=== PATIENT | female | born 1995 | race Caucasian/White ===

== ENCOUNTER 2018-03-12 15:34 | Emergency (ER) | payer OTHER ==
[2018-03-12 15:39] VITALS: BP 124/86
--- NOTE | 2018-03-12 15:46 | EDPHY ---
H & P Stated Complaint: right pointer finger lac. Time Seen by Provider: 03/12/18 15:45 HPI/ROS: HPI: This is a 22-year-old female who presents with Chief Complaint: right pointer finger lac. Location: Right pointer and middle finger Quality: Laceration Duration: Prior to arrival Signs and Symptoms: No bleeding, no radiation, no numbness, no weakness, no tingling, no incontinence, no decreased range of motion, no swelling, + pain, no fever Timing: Acute Severity: Mild Context: Patient is right-hand dominant, presents with accidentally cutting her right pointer finger and right middle finger on a kitchen knife prior to arrival. She reports that she has severe, constant, nonradiating pain that is worsened with any movement or touching of the area. Reports tetanus current. Denies paresthesias/weakness/decreased range of motion. Modifying Factors: Applied direct pressure with stopping of the bleeding Comment: ROS: see HPI Constitutional: No fever, no chills, no weight loss Eyes: No blurred vision Respiratory: No shortness of breath, no cough Cardiovascular: No chest pain Gastrointestinal: No nausea, no vomiting no diarrhea Genitourinary: No dysuria Extremities: No myalgias Neurologic: No weakness, no numbness Skin: No rashes Hematologic: No bruising, no bleeding MEDICAL/SURGICAL/SOCIAL HISTORY: Medical history: Generally healthy. Does not take any regular medications. Surgical history: Denies Social history: Student. Former smoker. CONSTITUTIONAL: awake and alert, no obvious distress HEENT: Atraumatic and normocephalic. NECK: supple, no midline tenderness, flexion 45 degrees, extension 45 degrees, right and left lateral flexion 45 degrees. No meningismus. Cardiovascular: Normal S1/S2, regular rate, regular rhythm, without murmur rub or gallop. PULMONARY/CHEST: Symmetrical and nontender. no crepitus. Clear to auscultation bilaterally. Good air movement. No accessory muscle usage. ABDOMEN: Soft, nondistended, nontender, no ecchymosis. PELVIC: no pain with rocking; bilateral hips flexion 125 degrees, extension 30 degrees, with no pain internal rotation and no pain external rotation. BACK: No midline tenderness, no paraspinous spasm, deep tendon reflexes 2/2, no pain with straight leg raise, No foot drop. Achilles reflexes are equal bilaterally. Able to walk on heels and toes without difficulty. EXTREMITIES: 2/2 pulses, strength 5/5, right 2nd digit .25 cm superficial linear laceration at the DIP joint on the palmar aspect; .25 cm superficial linear laceration between the DIP and PIP joint on the right middle finger palmar aspect. DIP/PIP/MCP flexion/extension intact with good light touch sensation. No nail involvement. no deformities, no clubbing, no cyanosis or edema. NEUROLOGICAL: no focal neuro deficits. GCS 15. Light touch sensation intact. SKIN: Warm and dry, no erythema. no rash. Good capillary refill. Source: Patient Exam Limitations: No limitations - Personal History LMP (Females 10-55): 15-21 Days Ago Current Tetanus Diphtheria and Acellular Pertussis (TDAP): Yes - Medical/Surgical History Hx Asthma: No Hx Chronic Respiratory Disease: No Hx Diabetes: No Hx Cardiac Disease: No Hx Renal Disease: No Hx Cirrhosis: No Hx Alcoholism: No Hx HIV/AIDS: No Hx Splenectomy or Spleen Trauma: No Other PMH: Denies - Social History Smoking Status: Current some day smoker Constitutional: Initial Vital Signs Temperature (C) 36.7 C 03/12/18 15:35 Heart Rate 66 03/12/18 15:35 Respiratory Rate 16 03/12/18 15:35 Blood Pressure 124/86 H 03/12/18 15:35 O2 Sat (%) 98 03/12/18 15:35 O2 Delivery Mode Room Air Allergies/Adverse Reactions: gluten Allergy (Verified 03/12/18 15:39) Home Medications: Medication Instructions Recorded Testosterone IM 03/12/18 Medical Decision Making Procedures: Procedure: Laceration repair. Verbal consent was obtained from the patient. The 0.25 cm, superficial, simple , linear laceration on the right pointer finger was anesthetized in the usual fashion using let topical. The wound was irrigated, draped and explored to its base with a gloved finger. There were no deep structures involved. No tendon injury was identified. The wound was repaired with Dermabond. The procedure was performed by myself. Procedure: Laceration repair. Verbal consent was obtained from the patient. The 0.25 cm, superficial, simple , linear laceration on the 3rd middle finger was anesthetized in the usual fashion using let topical. The wound was irrigated, draped and explored to its base with a gloved finger. There were no deep structures involved. No tendon injury was identified. The wound was repaired with Dermabond. The procedure was performed by myself. Procedure: Splint placement. A right 2nd digit finger splint was applied by the Emergency Room hematology technician. After application of the splint I returned and re-examined the patient. The splint was adequately immobilizing the joint and distal to the splint the patient's circulation and sensation was intact. ED Course/Re-evaluation: Cleaned with soap and water; let topical applied Superficial lacerations closed with Dermabond. Due to the laceration being on the DIP joint of 2nd digit, placed in finger splint to decrease immobilization No signs of neurovascular compromise/tenting of skin/compartment syndrome/ extremities and joints examined above and below area of concern and are neurovascularly intact. Verbal and written wound care instructions provided to patient This patient was seen under the supervision of my secondary supervising physician. I evaluated care for this patient independently. Differential Diagnosis: Differential diagnosis includes but is not limited to nerve injury, tendon injury, foreign Body, nail injury. - Data Points Medications Given: Discontinued Medications Tetracaine/Epinephrine/Lidocaine (Let Gel Topical) 1 ea TP EDNOW ONE Stop: 03/12/18 15:58 Last Admin: 03/12/18 16:30 Dose: 1 ea Departure - Departure Disposition: Home, Routine, Self-Care Clinical Impression: Laceration of multiple sites of hand and fingers without complication Qualifiers: Encounter type: initial encounter Laterality: right Qualified Code(s): S61.411A - Laceration without foreign body of right hand, initial encounter; S61.219A - Laceration without foreign body of unspecified finger without damage to nail, initial encounter; S61.219A - Laceration without foreign body of unspecified finger without damage to nail, initial encounter Condition: Good Instructions: Finger Laceration (ED), Skin Adhesive Care (ED) Additional Instructions: Keep the splint dry and in place for 7 days. After 7 days, you may remove the splint. After removing the splint; wash the site daily with mild soap and water; then pat dry. Allow the skin glue to slowly dissolve on its own. Take Tylenol 650 mg every 4 hours and/or Ibuprofen 600 mg every 8 hours with food as needed for pain. Return to the ER immediately if you experience new or worsening pain, discoloration, numbness, tingling, or any other symptoms that concern you. Referrals: [facility],. [Clinic] - As per Instructions
[2018-03-12] MEDS ORDERED: LET GEL TOPICAL 1 EA SYR TP ONE (15:57)
[2018-03-12] MEDS ORDERED: SKIN ADHESIVE (DERMABOND) 1 EACH TP ONE (16:51)
== END 2018-03-12 17:17 | disposition home or self-care (01) ==
PROC: 0HQFXZZ Repair Right Hand Skin, External Approach (ICD-10-PCS; principal; 2018-03-12)
DX: S61.210A Laceration without foreign body of right index finger without damage to nail, initial encounter (principal); S61.212A Laceration without foreign body of right middle finger without damage to nail, initial encounter; F17.200 Nicotine dependence, unspecified, uncomplicated; W26.0XXA Contact with knife, initial encounter

== ENCOUNTER 2018-11-24 00:22 | Emergency (ER) | payer OTHER ==
[2018-11-24 00:30] VITALS: BP 128/92
--- NOTE | 2018-11-24 00:56 | EDPHY ---
H & P Stated Complaint: ?IMPEND SZ,TENSE BACK OF NECK, TWITCHY, THINKS RXN TO INCREASED WELLBUTRIN Time Seen by Provider: 11/24/18 00:32 HPI/ROS: Chief Complaint: Neck spasms, facial numbness HPI: 23-year-old woman with a history of depression is presenting with the onset of increasing spasms in her neck and numbness in her face, particularly around her mouth. She says symptoms began after she took a 2nd dose of Wellbutrin today. Her primary care physician started her on Wellbutrin 4 days ago. She has been taking 70 my mg every morning. Today she took a 2nd doses part of the increasing taper. Shortly after taking the Wellbutrin, which she took with her Zoloft, she began having symptoms. No headache. No focal numbness or weakness. She has not taken any other medications. No fevers or chills. No nausea or vomiting. No lightheadedness or fainting. ROS: 10 systems were reviewed and were negative except those elements noted in the HPI. PMH: Depression Social History: No smoking, no alcohol, no recreational drug use Family History: non-contributory Physical Exam: Gen: Awake, Alert, No Distress HEENT: Nose: no rhinorrhea Eyes: PERRLA, EOMI Mouth: Moist mucosa Neck: Supple, no JVD Chest: nontender, lungs clear to auscultation Heart: S1, S2 normal, no murmur Abd: Soft, non-tender, no guarding Back: no CVA tenderness, no midline tenderness Ext: no edema, non-tender Skin: no rash Neuro: CN II-XII intact, Sensation grossly intact, Strength 5/5 in bilateral upper and lower extremities, normal finger-nose, normal heel-colindres, negative Romberg - Personal History LMP (Females 10-55): 8-14 Days Ago Current Tetanus/Diphtheria Vaccine: Yes - Medical/Surgical History Hx Asthma: No Hx Chronic Respiratory Disease: No Hx Diabetes: No Hx Cardiac Disease: No Hx Renal Disease: No Hx Cirrhosis: No Hx Alcoholism: No Hx HIV/AIDS: No Hx Splenectomy or Spleen Trauma: No Other PMH: Denies - Social History Smoking Status: Current some day smoker Constitutional: Initial Vital Signs Temperature (C) 36.7 C 11/24/18 00:25 Heart Rate 86 11/24/18 00:25 Respiratory Rate 24 H 11/24/18 00:25 Blood Pressure 128/92 H 11/24/18 00:25 O2 Sat (%) 99 11/24/18 00:25 O2 Delivery Mode Room Air Allergies/Adverse Reactions: gluten Allergy (Verified 11/24/18 00:25) Home Medications: Medication Instructions Recorded Wellbutrin Sr 11/24/18 Zoloft 100mg (*) 11/24/18 Medical Decision Making ED Course/Re-evaluation: 23-year-old woman presenting with neck spasms, perioral paresthesias after taking Wellbutrin. She has a completely normal neurologic exam at this time. No evidence of any seizure activity. She has been reassured. She does not wish to continue taking Wellbutrin. I told her it is okay for her to discontinue but she should continue taking her Zoloft. Follow up with primary care physician early next week. Departure - Departure Disposition: Home, Routine, Self-Care Clinical Impression: Medication reaction Condition: Good Instructions: Normal Exam (ED) Additional Instructions: Follow up with primary care physician in 3-4 days for further evaluation. You may discontinue the Wellbutrin until you follow up with primary care physician. Please continue taking your Zoloft as prescribed.
== END 2018-11-24 01:08 | disposition home or self-care (01) ==
DX: R20.2 Paresthesia of skin (principal); T43.205A Adverse effect of unspecified antidepressants, initial encounter; F32.9 Major depressive disorder, single episode, unspecified; Z79.899 Other long term (current) drug therapy; M62.838 Other muscle spasm